=== PATIENT | female | born 1975 | race Caucasian/White ===

== ENCOUNTER 2018-10-02 20:48 | Inpatient (IN) | payer MEDICARE, MEDICAID ==
[~2018-10-02] VITALS: Ht 154.9 cm; Wt 77.1 kg
--- NOTE | ~2018-10-02 | EKG ---
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
--- NOTE | ~2018-10-02 | EKG ---
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
--- NOTE | ~2018-10-02 | CON ---
[place], [place] REPORT OF CONSULTATION NAME: TRAE MUÑIZ UNIT #: [id number] ROOM: 401 DOCTOR: JONN FINNEGAN,FANTASMA BIRTHDATE: [birth year] DOS: 10/03/2018 REASON FOR CONSULTATION: Tachycardia. HISTORY OF PRESENT ILLNESS: The patient is a 42-year-old patient was admitted with cough, shortness of breath and fever. She noted to have tachycardia and Cardiology was consulted. In the Emergency Room, heart rates almost 180. She received adenosine and Cardizem and IV Lopressor. She denies any palpitations. The patient is mostly noncommunicative due to her laryngeal problems. Her is at bedside. She denies any chest pain, PND or orthopnea. REVIEW OF SYSTEMS: Review of the 10 systems are limited due to the patient's mostly unable to communicate properly due to her history of laryngeal problems. PAST MEDICAL HISTORY: 1. History of foot drops. 2. Renal stones. 3. Migraine headaches. 4. Anxiety and depression. PAST SURGICAL HISTORY: Nil contributory. SOCIAL HISTORY: The patient is a former smoker, quit in 2016. Does not drink, does not use illicit drugs. FAMILY HISTORY: Nil contributory. ALLERGIES: Reviewed. MEDICATIONS: Reviewed. PHYSICAL EXAMINATION: VITAL SIGNS: Blood pressure 150/66, pulse 120, respiratory rate 22, weight 77.1 kg, BMI 30. GENERAL: Alert, comfortable, in no acute distress. NECK: Supple, no distended neck veins, no carotid bruit. CHEST: Symmetrical, nontender. LUNGS: Few scattered rhonchi. HEART: Regular rhythm, no S3, no palpable thrills. ABDOMEN: Nontender. Bowel sounds normal. EXTREMITIES: Showed trace edema. Distal pulses are fair. SKIN: Warm and dry. RECTAL: Deferred. GENITOURINARY: Deferred. NEUROLOGIC: Limited. REVIEW OF THE DIAGNOSTIC TESTS: EKG showed paroxysmal supraventricular tachycardia. Cardiac troponins are slightly elevated at 0.05, 0.056, 0.052. TSH is normal. White cell count is 17.1 thousand, hemoglobin 13.6. Chem-7 is unremarkable. [place], [place] REPORT OF CONSULTATION NAME: TRAE MUÑIZ UNIT #: [id number] ROOM: 401 DOCTOR: JONN FINNEGAN,FANTASMA BIRTHDATE: [birth year] IMPRESSION: 1. Paroxysmal supraventricular tachycardia. 2. Borderline elevation troponin due to tachycardia. 3. Upper respiratory illness. 4. Hypertension. 5. Bilateral foot drop. 6. Non-morbid obesity. 7. Anxiety and depression. RECOMMENDATIONS: 1. Start metoprolol 25 mg 3 times a day and watch her heart rate and blood pressures. 2. Check 2D echo for LV function and valvular function. 3. Further recommendation based on her hospital course above. Above recommendations discussed with the patient and her who is at bedside and all their questions were answered. FANTASMA LUNSFORD MD CM:CONSTR:REPORT OF CONSULTATION 1923 10/04/18 0127 interface
--- NOTE | ~2018-10-02 | EKG ---
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
[~2018-10-02 20:48] MED LIST: AMOXICILLIN500 M2 PO; AMOXIL500 MG PO; ATIVAN0.5 MG PO; AUGMENTIN 875 M1 TAB PO; BENADRYL ALLERG25 M2 PO; BENADRYL25 M2 PO; CAYENNE PO; CELERY SEED OI500 ML PO; CIPRO250 MG PO; EAR WAX DROPS 115 ML OT; FEOSOL300 MG PO; FISH OIL500 M1 PO; FLEXERIL5 MG PO; FLOMAX0.4 MG PO; LEXAPRO5 MG PO; LICORICE ROOT PO; MONOPRIL20 MG PO; MOTRIN400 MG PO; MOTRIN600 MG PO; MULTIPLE VITAMI1 CAP PO; Medrol Dosepak4 MG PO; PRILOSEC20 MG PO; TRAMADOL HCL50 MG PO; ULTRAM50 MG PO; VOLTAREN50 M1 PO; ZITHROMAX Z PA250 MG PO; ZOFRAN ODT4 MG SL; [UNRECOGNIZED DRUG - OTHER] PO
[2018-10-02 21:03] VITALS: BP 143/97
--- NOTE | 2018-10-02 21:24 | NUR ---
PATIENT REFUSING BIPAP PER .
[2018-10-02 21:25] LABS: BASO # 0.1 10*3/uL (0.0-0.1); BASO % 0.3 % (0.0-1.0); EOS % 0.1 % (1.0-4.0); HEMATOCRIT 42.3 % (37.0-47.0); HEMOGLOBIN 13.6 g/dl (12.0-16.0); LYMPH # 0.9 10*3/uL (1.3-4.4); LYMPH % 5.2 % (27.0-41.0); MEAN CELL VOLUME 80.4 fl (81.0-99.0); MEAN CORPUSCULAR HGB 25.9 pg (27.0-31.0); MEAN CORPUSCULAR HGB CONC 32.2 g/dl (33.0-37.0); MEAN PLATELET VOLUME 9.6 fl (9.6-12.3); MONO # 1.2 10*3/uL (0.1-1.0); MONO % 7.2 % (3.0-9.0); NEUT # 14.8 10*3/uL (2.3-7.9); NEUT % 86.8 % (47.0-73.0); PLATELET COUNT AUTOMATED 270 10*3/uL (130-400); RED BLOOD COUNT 5.26 10*6/uL (4.10-5.10); RED CELL DISTRI WIDTH 13.8 % (0-14.5); WHITE BLOOD COUNT 17.1 10*3/uL (4.8-10.8)
--- NOTE | 2018-10-02 21:36 | NUR ---
CARDIOVERSION PADS PLACED ON PT I EXPLAINED TO PT THE USE AND POSSIBLE NEED FOR SYNC CARDIOVERSION PT STATES SHE DOES NOT WANT TO BE SHOCKED PT STATES SHE REFUSES
[2018-10-02 21:38] LABS: ACT PARTIAL THROMBO TIME 27.9 SECONDS (20.0-32.1)
[2018-10-02 21:39] VITALS: BP 74/45
--- NOTE | 2018-10-02 21:43 | NUR ---
CRITICAL LACTIC 2.9, NOTIFIED.
[2018-10-02 21:44] LABS: ALBUMIN 4.1 gm/dl (3.1-4.5); ALKALINE PHOSPHATASE 73 U/L (45-117); BUN 7 mg/dl (7-24); CHLORIDE 107 mmol/L (98-107); CREATININE 0.65 mg/dL (0.55-1.02); POTASSIUM 3.7 mmol/L (3.5-5.1); SGOT/AST 11 IU/L (3-35); SGPT/ALT 14 U/L (12-78); SODIUM 141 mmol/L (136-145); TOTAL PROTEIN 8.2 gm/dL (6.4-8.2)
[2018-10-02 21:45] LABS: TROPONIN I < 0.015 ng/ml (<0.045)
--- NOTE | 2018-10-02 21:52 | NUR ---
PT HEART RATE MAINTAINS RATE OF 165 DR HEARD NOTIFIED VO TO D/C CARDIZEM IP GIVEN ORDERS TO GIVE PT IV FLUID CHALLENGE
--- NOTE | 2018-10-02 22:06 | NUR ---
MINIMAL CHANGE WITH 6 ADENACARD PT GIVEN 12 ADENACARD RATE DROPPED BRIEFLY INTO 80'S / MIN AND QUICKLY RETURNED TO MID 160' MIN
[2018-10-02 22:17] VITALS: BP 155/100
[2018-10-02 22:25] VITALS: BP 157/110
[2018-10-02 22:34] VITALS: BP 163/107
[2018-10-02 22:41] VITALS: BP 152/104
[2018-10-02 23:57] LABS: BILIRUBIN NEGATIVE (NEGATIVE); BLOOD 3+ (NEGATIVE); COLOR YELLOW (YELLOW); GLUCOSE NEGATIVE (NEGATIVE); KETONE 3+ (NEGATIVE); LEUKO ESTERASE NEGATIVE (NEGATIVE); NITRITE NEGATIVE (NEGATIVE); UROBILINOGEN 0.2 E.U./dl (0.2-1.0)
[2018-10-03] VITALS (9 sets, daily range): BP systolic 139–160; BP diastolic 66–102
[2018-10-03 00:07] LABS: BACTERIA TRACE; CLARITY CLOUDY (CLEAR); EPITHELIAL CELLS TNTC; RBC 16-20 rbc/hpf (0-2)
--- NOTE | 2018-10-03 00:27 | NUR ---
LAB CALLED TROPONIN 0.056 DR HEARD NOTIFIED
--- NOTE | 2018-10-03 03:03 | NUR ---
LAB CALLED TROPONIN 0.052 DR HEARD NOTIFIED
--- NOTE | 2018-10-03 05:50 | NUR ---
MESSAGE LEFT WITH YIFAN HOFF FOR CONSULT.
--- NOTE | 2018-10-03 07:20 | NUR ---
PT REPORT RECEIVED. PT AWAKE AND ALERT. VITALS STABLE AND TACHYCARDIA REMAINS ALTHOUGH IMPROVED. NO CARDIAC DRIP IS RUNNING ANY LONGER SINCE MY ARRIVAL.
--- NOTE | 2018-10-03 08:10 | NUR ---
PT REQUESTS MOTRIN, NOT TYLEBNOL, FOR CHRONIC HEADACHE. DR OCHOA WAS ASKED TO PROVIDE ORDER. INSTEAD HE ORDERS A URINE . PT STATES SHE HAS ALREADY URINATED AND CANNOT NOW. NO MOTRIN ORDER PROVIDED YET.
--- NOTE | 2018-10-03 08:20 | NUR ---
TACHYCARDIA PERSISTS. NEW ORDER FOR CTA CHEST. PT DENIES SOB.
--- NOTE | 2018-10-03 08:24 | NUR ---
PT WAS FEBRILE ON ARRIVAL YESTERDAY. NO LONGER FEBRILE.
[2018-10-03] MEDS ORDERED: CALM (08:43)
[2018-10-03] MEDS ORDERED: BEET ROOT (08:43)
[2018-10-03] MEDS ORDERED: VITAMIN C1000 M5 PO (08:44)
[2018-10-03] MEDS ORDERED: TUMERIC (08:44)
[2018-10-03] MEDS ORDERED: [UNRECOGNIZED DRUG - OTHER] (08:46)
[2018-10-03] MEDS ORDERED: QUERCETIN DIHYDR1 GM PO (08:46)
[2018-10-03] MEDS ORDERED: CBD (08:47)
--- NOTE | 2018-10-03 09:52 | NUR ---
A 42, admitted to , under the services of TESSY Soliman DO with a diagnosis of TACHYARRHYTHMIA, BRONCHITIS. Chief complaint is SHORTNESS OF BREATH, COUGH, FEVER. Patient arrived via stretcher from ER. Monitor applied. Initial assessment completed. Vital signs taken and recorded. TESSY SOLIMAN DO notified of admission to the unit. Orders received. See assessment for past medical history, medications and allergies. Patient and/or family oriented to unit. [address] visitation policy reviewed. Clothing/patient valuable form completed. HUONG FAITH
--- NOTE | 2018-10-03 10:55 | NUR ---
PT REQUESTED AND WAS MEDICATED WITH MOTRIN GIVEN FOR PT C/O HEADACHE. CALL LIGHT AND AT BEDSIDE. WILL MONITOR
--- NOTE | 2018-10-03 15:19 | NUR ---
24 HR chart check completed.
--- NOTE | 2018-10-03 19:48 | NUR ---
24 HOUR CHART CHECK COMPLETE.
--- NOTE | 2018-10-03 22:56 | NUR ---
SPOKE TO DR. BOWSER REGARDING PTS REQUEST FOR IBUPROFEN INSTEAD OF TYLENOL FOR NECK PAIN SHE IS EXPERIENCING FROM HER PERSISTENT COUGH. PT STATES "TYLENOL MAKES MY STOMACH UPSET". AWAITING NEW ORDERS, NO NEW ORDERS AT THIS TIME.
--- NOTE | 2018-10-03 23:29 | NUR ---
ADMINISTERED PRN MOTRIN PRESCRIBED FOR 3/10 NECK PAIN RELATED TO PERSISTENT COUGH. WILL CONTINUE TO MONITOR THE PT AND REASSESS IN AN HOUR. CALL LIGHT IN REACH. NO OTHER COMPLAINTS AT THIS TIME.
[2018-10-04] VITALS: BP 140/110
--- NOTE | 2018-10-04 00:30 | NUR ---
PT SAYS THE MOTRIN WAS EFFECTIVE. WILL CONTINUE TO MONITOR.
[2018-10-04 06:12] VITALS: BP 130/64
--- NOTE | 2018-10-04 06:23 | NUR ---
WENT IN TO ADMINISTER PTS MORNING DOSE OF LOPRESSOR AND PT REQUESTED WAITING A LITTLE LATER IN THE MORNING TO TAKE IT BECAUSE SHE "HAS A HARD TIME TAKING PILLS IN THE MORNING". PTS HR IS 88 AND BP IS 130/64. I WILL NOTIFY THE ONCOMING NURSE OF THE PTS REQUEST AND CONTINUE TO MONITOR THE PT.
[2018-10-04 06:25] LABS: BASO % 0.2 % (0.0-1.0); LYMPH # 0.7 10*3/uL (1.3-4.4); LYMPH % 7.3 % (27.0-41.0); MEAN CORPUSCULAR HGB 25.8 pg (27.0-31.0); MEAN CORPUSCULAR HGB CONC 31.1 g/dl (33.0-37.0); MEAN PLATELET VOLUME 10.1 fl (9.6-12.3); MONO # 0.6 10*3/uL (0.1-1.0); MONO % 6.1 % (3.0-9.0); NEUT # 7.8 10*3/uL (2.3-7.9); PLATELET COUNT AUTOMATED 217 10*3/uL (130-400); RED BLOOD COUNT 4.23 10*6/uL (4.10-5.10); RED CELL DISTRI WIDTH 14.3 % (0-14.5); WHITE BLOOD COUNT 9.1 10*3/uL (4.8-10.8)
[2018-10-04 06:28] LABS: BUN 8 mg/dl (7-24); CHLORIDE 114 mmol/L (98-107); CHOLESTEROL 127 mg/dL (<200); CREATININE 0.41 mg/dL (0.55-1.02); PHOSPHOROUS 2.7 mg/dL (2.5-4.9); POTASSIUM 3.9 mmol/L (3.5-5.1); SODIUM 144 mmol/L (136-145)
[2018-10-04 06:33] LABS: FREE T4 1.46 ng/dl (0.76-1.46); HDL CHOLESTEROL 62 mg/dl (40-60); LDL CHOLESTEROL 56 mg/dL (9-159); TRIGLYCERIDES 44 mg/dl (<150); VLDL CHOLESTEROL 9 mg/dL (6-40)
[2018-10-04 07:00] LABS: HEMATOCRIT 35.1 % (37.0-47.0); HEMOGLOBIN 10.9 g/dl (12.0-16.0)
--- NOTE | 2018-10-04 07:00 | NUR ---
ARRIVED ON FLOOR, INTRODUCED TO PATIENT, BEDSIDE REPORT RECIEVED, WHITE BOARD UPDATED.O CONCERNS VOICED AT THIS TIME.
--- NOTE | 2018-10-04 07:54 | NUR ---
Shift chart check completed.
[2018-10-04 08:00] VITALS: BP 138/68
--- NOTE | 2018-10-04 10:00 | NUR ---
PATIENT C/O HEAD AND NECK ACHE, MEDICATED WITH MOTRIN
--- NOTE | 2018-10-04 11:00 | NUR ---
PATIENT REPORTS GOOD EFFECT FROM MOTRIN GIVEN X 1 HOUR AGO
[2018-10-04 11:30] VITALS: BP 134/66
--- NOTE | 2018-10-04 15:50 | NUR ---
IV RIGHT ANTICUBE LEAKING FLUIDS, STARTED NEW IV LEFT HAND, PATIENT TOLERATED WELL,IV NS RUNNING AT 100CC HOUR
[2018-10-04 16:00] VITALS: BP 140/90
--- NOTE | 2018-10-04 19:55 | NUR ---
24 HOUR CHART CHECK COMPLETE.
[2018-10-04 20:00] VITALS: BP 140/100; BP 153/92
--- NOTE | 2018-10-04 23:30 | NUR ---
PT ANXIOUS, UPSET AND CRYING WORRIED ABOUT HER HEALTH AND CONDITION. I SAT WITH THE PT AND HER AND ASKED ABOUT HER CONCERNS. SHE IS VERY WORRIED ABOUT HER HEART RATE. I EXPLAINED THAT SHE HAS BEEN IN NSR WITH A HR IN THE 80-90'S FOR ME. I WENT OVER LAB RESULTS, TEST RESULTS, AND PLAN OF CARE FOR THE PT. I ANSWERED ANY QUESTIONS SHE HAD. SHE STATED SHE FELT BETTER AFTER WE TALKED. SHE APPEARS MORE RELAXED. I REMINDED HER OF THE USE OF HER CALL LIGHT TO REACH ME WITH ANY OTHER CONCERNS THAT SHE MAY HAVE.
[2018-10-05] VITALS: BP 142/99
[2018-10-05 06:15] LABS: BASO % 0.1 % (0.0-1.0); HEMATOCRIT 35.9 % (37.0-47.0); HEMOGLOBIN 11.4 g/dl (12.0-16.0); LYMPH # 0.8 10*3/uL (1.3-4.4); LYMPH % 8.3 % (27.0-41.0); MEAN CELL VOLUME 81.4 fl (81.0-99.0); MEAN CORPUSCULAR HGB 25.9 pg (27.0-31.0); MEAN CORPUSCULAR HGB CONC 31.8 g/dl (33.0-37.0); MEAN PLATELET VOLUME 10.1 fl (9.6-12.3); MONO # 0.8 10*3/uL (0.1-1.0); MONO % 7.9 % (3.0-9.0); NEUT # 8.1 10*3/uL (2.3-7.9); NEUT % 83.1 % (47.0-73.0); PLATELET COUNT AUTOMATED 277 10*3/uL (130-400); RED BLOOD COUNT 4.41 10*6/uL (4.10-5.10); RED CELL DISTRI WIDTH 14.1 % (0-14.5); WHITE BLOOD COUNT 9.8 10*3/uL (4.8-10.8)
[2018-10-05 06:33] LABS: BUN 12 mg/dl (7-24); CHLORIDE 114 mmol/L (98-107); CREATININE 0.42 mg/dL (0.55-1.02); POTASSIUM 3.7 mmol/L (3.5-5.1); SODIUM 146 mmol/L (136-145)
[2018-10-05 08:00] VITALS: BP 148/88
[2018-10-05 12:00] VITALS: BP 148/90
[2018-10-05 16:00] VITALS: BP 140/64
--- NOTE | 2018-10-05 19:39 | NUR ---
24 HOUR CHART CHECK COMPLETE.
[2018-10-05 20:00] VITALS: BP 142/110; BP 146/62
--- NOTE | 2018-10-05 20:00 | NUR ---
LABS RESULTS REVIEWED WITH PT PER REQUEST. PT STATES THAT "BEING INFORMED HELPS HER CONTROL HER ANXIETY". WILL CONTINUE TO UPDATE HER WITH ANY CHANGES TO HER PLAN OF CARE.
[2018-10-06] VITALS: BP 137/91
[2018-10-06 08:05] VITALS: BP 142/100
--- NOTE | 2018-10-06 09:00 | NUR ---
Punch Card Operator in to talk to patient. Patient states lives at home with . There are no steps in the home. Physician: none at present [facility]acy[facility] Patient's level of ADLs: MINIMAL ASSIST Patient has working utilities: all working DME: electric wheelchair Follow-up physician's appointment after d/c: will be made by hospitalist nurse director upon discharge Does patient want to access PORTAL?: no Discharge plan discussed with patient, patient lives at home with , she uses an electric wheelchair for ambulation, patient states she will be going home when able and denies any home needs, discussed with patient no having a doctor to follow up with, patient stated she was given a list of doctors and would like to follow up with the resident clinic, will notify hospitalist cherie director, patient denies any other needs at this time. KERVIN IBANEZ
[2018-10-06] MEDS ORDERED: LOPRESSOR100 M1 PO (11:55)
[2018-10-06] MEDS ORDERED: PROAIR HFA8.5 GM INH (11:55)
[2018-10-06] MEDS ORDERED: CEFUROXIME AXE500 MG PO (11:55)
[2018-10-06] MEDS ORDERED: PREDNISONE10 MG PO (11:55)
--- NOTE | 2018-10-06 13:05 | NUR ---
Discharge instructions reviewed with patient/family. Patient receptive and verbalizes understanding. Follow-up care arranged. Written instructions given to patient/family. TERRI WYATT
--- NOTE | 2018-10-06 13:21 | NUR ---
PATIENT DISCHARGED TO FRONT LOBBY BY WHEELCHAIR WITH , FOR TRANSPORT HOME BY PRIVATE VEHICLE.
== END 2018-10-06 13:21 | disposition home or self-care (01) | DRG 871 ==
LOC: ED 20:48 → 4E 10-03 01:47 → EDHOLD 10-03 01:47 → 4E 10-03 09:17
PROVIDERS: Emergency Medicine; Internal Medicine; Student in an Organized Health Care Education/Training Program; ADMIT Internal Medicine
DX: A41.9 Sepsis, unspecified organism (principal); J18.9 Pneumonia, unspecified organism; J96.01 Acute respiratory failure with hypoxia; N39.0 Urinary tract infection, site not specified; I47.1 Supraventricular tachycardia; R65.20 Severe sepsis without septic shock; F32.9 Major depressive disorder, single episode, unspecified; M21.372 Foot drop, left foot; M21.371 Foot drop, right foot; I10 Essential (primary) hypertension; R74.8 Abnormal levels of other serum enzymes; R80.9 Proteinuria, unspecified; R31.9 Hematuria, unspecified; B96.89 Other specified bacterial agents as the cause of diseases classified elsewhere; R82.4 Acetonuria; J40 Bronchitis, not specified as acute or chronic; G43.909 Migraine, unspecified, not intractable, without status migrainosus; D75.89 Other specified diseases of blood and blood-forming organs; R79.82 Elevated C-reactive protein (CRP); F41.9 Anxiety disorder, unspecified; E66.8 Other obesity; Z68.32 Body mass index [BMI] 32.0-32.9, adult; Z88.8 Allergy status to other drugs, medicaments and biological substances; Z88.1 Allergy status to other antibiotic agents; Z88.6 Allergy status to analgesic agent; Z87.442 Personal history of urinary calculi; Z87.891 Personal history of nicotine dependence; Z83.3 Family history of diabetes mellitus; Z82.49 Family history of ischemic heart disease and other diseases of the circulatory system; Z79.899 Other long term (current) drug therapy

== ENCOUNTER → 2018-10-28 | Outpatient (CLI) | payer MEDICARE ==
[~2018-10-28] MED LIST changes: +BEET ROOT; +CALM; +CBD; +CEFUROXIME AXE500 MG PO; +LOPRESSOR100 M1 PO; +PREDNISONE10 MG PO; +PROAIR HFA8.5 GM INH; +QUERCETIN DIHYDR1 GM PO; +TUMERIC; +VITAMIN C1000 M5 PO; +[UNRECOGNIZED DRUG - OTHER]
== END | disposition home or self-care (01) ==
LOC: RESCLI 02:08
DX: Z09 Encounter for follow-up examination after completed treatment for conditions other than malignant neoplasm (principal); G43.909 Migraine, unspecified, not intractable, without status migrainosus; I10 Essential (primary) hypertension; I47.1 Supraventricular tachycardia; E55.9 Vitamin D deficiency, unspecified; Z79.899 Other long term (current) drug therapy

== ENCOUNTER → 2018-12-02 | Outpatient (CLI) | payer MEDICARE | END | disposition home or self-care (01) | LOC: RESCLI 00:59 | DX: E55.9 Vitamin D deficiency, unspecified (principal); I47.1 Supraventricular tachycardia; I10 Essential (primary) hypertension; R50.9 Fever, unspecified; Z79.899 Other long term (current) drug therapy; Z88.8 Allergy status to other drugs, medicaments and biological substances ==

== ENCOUNTER → 2019-04-21 | Outpatient (CLI) | payer MEDICARE | END | disposition home or self-care (01) | LOC: RESCLI 02:13 | DX: I47.1 Supraventricular tachycardia (principal); J45.20 Mild intermittent asthma, uncomplicated; E55.9 Vitamin D deficiency, unspecified; Z87.891 Personal history of nicotine dependence; Z88.8 Allergy status to other drugs, medicaments and biological substances ==

== ENCOUNTER → 2019-10-30 | Outpatient (CLI) | payer MEDICARE | END | disposition home or self-care (01) | LOC: RESCLI 01:19 | DX: J45.20 Mild intermittent asthma, uncomplicated (principal); E55.9 Vitamin D deficiency, unspecified; I47.1 Supraventricular tachycardia; M21.371 Foot drop, right foot; M21.372 Foot drop, left foot ==

== ENCOUNTER → 2019-11-30 | Outpatient (CLI) | payer MEDICARE | END | disposition home or self-care (01) | LOC: LAB 14:57 | DX: E55.9 Vitamin D deficiency, unspecified (principal) ==

== ENCOUNTER → 2020-04-20 | Outpatient (CLI) | payer MEDICARE | END | disposition home or self-care (01) | LOC: RESCLI 00:09 | PROVIDERS: ATTEND Internal Medicine Nephrology | DX: J45.20 Mild intermittent asthma, uncomplicated (principal); E55.9 Vitamin D deficiency, unspecified; I47.1 Supraventricular tachycardia; Z79.899 Other long term (current) drug therapy; Z88.8 Allergy status to other drugs, medicaments and biological substances ==

== ENCOUNTER → 2020-08-04 | Outpatient (CLI) | payer MEDICARE | END | disposition home or self-care (01) | LOC: RESCLI 00:26 | PROVIDERS: ATTEND Internal Medicine | DX: I47.1 Supraventricular tachycardia (principal); E55.9 Vitamin D deficiency, unspecified; J45.20 Mild intermittent asthma, uncomplicated; F41.9 Anxiety disorder, unspecified; Z79.899 Other long term (current) drug therapy; Z98.890 Other specified postprocedural states; Z88.8 Allergy status to other drugs, medicaments and biological substances ==

== ENCOUNTER → 2020-11-07 | Outpatient (CLI) | payer OTHER, MEDICARE ==
[2020-11-07 15:54] LABS: BASO # 0.1 10*3/uL (0.0-0.1); BASO % 0.8 % (0.0-1.0); EOS # 0.4 10*3/uL (0.0-0.4); EOS % 3.9 % (1.0-4.0); HEMATOCRIT 38.3 % (37.0-47.0); LYMPH % 21.3 % (27.0-41.0); MEAN CELL VOLUME 81.8 fl (81.0-99.0); MEAN CORPUSCULAR HGB 26.7 pg (27.0-31.0); MEAN CORPUSCULAR HGB CONC 32.6 g/dl (33.0-37.0); MEAN PLATELET VOLUME 9.5 fl (9.6-12.3); MONO % 10.6 % (3.0-9.0); NEUT # 5.8 10*3/uL (2.3-7.9); NEUT % 63.1 % (47.0-73.0); PLATELET COUNT AUTOMATED 301 10*3/uL (130-400); RED BLOOD COUNT 4.68 10*6/uL (4.10-5.10); RED CELL DISTRI WIDTH 13.8 % (0-14.5); WHITE BLOOD COUNT 9.2 10*3/uL (4.8-10.8)
[2020-11-07 16:26] LABS: ALBUMIN 3.6 gm/dl (3.1-4.5); ALKALINE PHOSPHATASE 55 U/L (45-117); BUN 11 mg/dl (7-24); CHLORIDE 108 mmol/L (98-107); CHOLESTEROL 176 mg/dL (<200); CREATININE 0.57 mg/dL (0.55-1.02); LDL CHOLESTEROL 93 mg/dL (9-159); POTASSIUM 3.6 mmol/L (3.5-5.1); SGOT/AST 14 IU/L (3-35); SGPT/ALT 20 U/L (12-78); SODIUM 141 mmol/L (136-145); TOTAL PROTEIN 7.7 gm/dL (6.4-8.2); TRIGLYCERIDES 121 mg/dl (<150)
[2020-11-07 16:35] LABS: VITAMIN D, 25-HYDROXY 55.6 ng/mL (30-100)
== END | disposition home or self-care (01) ==
LOC: LAB 15:23
PROVIDERS: Student in an Organized Health Care Education/Training Program; ATTEND Internal Medicine Nephrology
DX: E55.9 Vitamin D deficiency, unspecified (principal); Z79.899 Other long term (current) drug therapy

== ENCOUNTER → 2020-11-11 | Outpatient (CLI) | payer MEDICARE | END | disposition home or self-care (01) | LOC: RESCLI 00:49 | PROVIDERS: ATTEND Internal Medicine | DX: I47.1 Supraventricular tachycardia (principal); E55.9 Vitamin D deficiency, unspecified; I10 Essential (primary) hypertension; J45.20 Mild intermittent asthma, uncomplicated; G43.909 Migraine, unspecified, not intractable, without status migrainosus; Z79.899 Other long term (current) drug therapy; Z87.891 Personal history of nicotine dependence ==

== ENCOUNTER 2021-02-02 12:41 | Emergency (ER) | payer MEDICARE ==
[~2021-02-02] VITALS: Wt 74.8 kg
[2021-02-02] MEDS ORDERED: PREDNISONE20 M1 PO ×3 (15:39→16:00)
[2021-02-02] MEDS ORDERED: PROVENTIL HFA6.7 GM INH ×3 (15:39→16:00)
== END 2021-02-02 15:40 | disposition home or self-care (01) ==
LOC: ED 12:41
DX: J40 Bronchitis, not specified as acute or chronic (principal); Z20.822 Contact with and (suspected) exposure to COVID-19; Z91.030 Bee allergy status; Z88.8 Allergy status to other drugs, medicaments and biological substances; Z88.1 Allergy status to other antibiotic agents; Z79.899 Other long term (current) drug therapy; Z87.891 Personal history of nicotine dependence

== ENCOUNTER → 2021-05-15 | Outpatient (CLI) | payer MEDICARE ==
[~2021-05-15] MED LIST changes: +PREDNISONE20 M1 PO; +PROVENTIL HFA6.7 GM INH
== END | disposition home or self-care (01) ==
LOC: RESCLI 09:28
PROVIDERS: ATTEND Internal Medicine Nephrology
DX: I47.1 Supraventricular tachycardia (principal); E55.9 Vitamin D deficiency, unspecified; J45.20 Mild intermittent asthma, uncomplicated; Z79.899 Other long term (current) drug therapy

== ENCOUNTER → 2021-11-06 | Outpatient (CLI) | payer MEDICARE | END | disposition home or self-care (01) | LOC: RESCLI 05:35 | PROVIDERS: ATTEND Internal Medicine | DX: I47.1 Supraventricular tachycardia (principal); E55.9 Vitamin D deficiency, unspecified; F41.9 Anxiety disorder, unspecified; Z87.891 Personal history of nicotine dependence; Z79.899 Other long term (current) drug therapy; Z88.8 Allergy status to other drugs, medicaments and biological substances ==

== ENCOUNTER → 2022-05-28 | Outpatient (CLI) | payer MEDICARE | END | disposition home or self-care (01) | LOC: RESCLI 04:33 | PROVIDERS: ATTEND Internal Medicine | DX: M21.372 Foot drop, left foot (principal); M21.371 Foot drop, right foot; I47.1 Supraventricular tachycardia; E55.9 Vitamin D deficiency, unspecified; I10 Essential (primary) hypertension; J45.20 Mild intermittent asthma, uncomplicated; F41.9 Anxiety disorder, unspecified; F32.A Depression, unspecified; F43.10 Post-traumatic stress disorder, unspecified; N20.0 Calculus of kidney; Z78.9 Other specified health status; Z82.49 Family history of ischemic heart disease and other diseases of the circulatory system; Z83.3 Family history of diabetes mellitus; Z79.899 Other long term (current) drug therapy; Z88.8 Allergy status to other drugs, medicaments and biological substances; Z91.018 Allergy to other foods; Z91.030 Bee allergy status ==

== ENCOUNTER → 2022-09-24 | Outpatient (CLI) | payer MEDICARE ==
[~2022-09-24] MED LIST changes: +AMLODIPINE BESYL5 MG PO; +LOPERAMIDE HCL2 MG PO; +NASAL RELIEF 1215 ML NAS; +OMNICEF300 MG PO; +VIBRAMYCIN100 MG PO; +VITAMIN B6 PO
== END | disposition home or self-care (01) ==
LOC: RESCLI 02:28
PROVIDERS: ATTEND Internal Medicine
DX: I10 Essential (primary) hypertension (principal); J45.20 Mild intermittent asthma, uncomplicated; R05.9 Cough, unspecified; Z79.899 Other long term (current) drug therapy

== ENCOUNTER 2022-09-27 13:33 | Emergency (ER) | payer OTHER ==
[~2022-09-27] VITALS: Wt 90.7 kg
[~2022-09-27 13:33] MED LIST changes: -AMLODIPINE BESYL5 MG PO; -LOPERAMIDE HCL2 MG PO; -NASAL RELIEF 1215 ML NAS; -OMNICEF300 MG PO; -VITAMIN B6 PO
[2022-09-27 14:33] LABS: BASO % 0.1 % (0.0-1.0); HEMATOCRIT 41.2 % (37.0-47.0); LYMPH # 0.9 10*3/uL (1.3-4.4); LYMPH % 11.3 % (27.0-41.0); MEAN CELL VOLUME 77.9 fl (81.0-99.0); MEAN CORPUSCULAR HGB 24.4 pg (27.0-31.0); MEAN CORPUSCULAR HGB CONC 31.3 g/dl (33.0-37.0); MEAN PLATELET VOLUME 9.2 fl (9.6-12.3); MONO # 0.3 10*3/uL (0.1-1.0); MONO % 4.5 % (3.0-9.0); NEUT # 6.3 10*3/uL (2.3-7.9); NEUT % 83.6 % (47.0-73.0); PLATELET COUNT AUTOMATED 352 10*3/uL (130-400); RED BLOOD COUNT 5.29 10*6/uL (4.10-5.10); RED CELL DISTRI WIDTH 14.6 % (0-14.5); WHITE BLOOD COUNT 7.5 10*3/uL (4.8-10.8)
[2022-09-27 14:45] LABS: ACT PARTIAL THROMBO TIME 27.7 SECONDS (20.0-32.1)
[2022-09-27 14:55] LABS: ALKALINE PHOSPHATASE 59 U/L (46-116); BUN 8 mg/dl (9-23); CHLORIDE 105 mmol/L (98-107); POTASSIUM 3.9 mmol/L (3.4-5.1); SGPT/ALT 14 U/L (10-49); TOTAL PROTEIN 7.3 gm/dL (6.0-8.0)
== END 2022-09-27 15:55 | disposition left against medical advice (07) ==
LOC: ED 13:33
PROVIDERS: Internal Medicine
DX: R78.81 Bacteremia (principal); Z91.030 Bee allergy status; Z88.1 Allergy status to other antibiotic agents; Z88.6 Allergy status to analgesic agent; Z88.8 Allergy status to other drugs, medicaments and biological substances; Z87.891 Personal history of nicotine dependence

== ENCOUNTER 2022-09-28 17:02 | Inpatient (IN) | payer OTHER ==
[~2022-09-28] VITALS: Ht 152.4 cm; Wt 98.4 kg
[2022-09-28 18:23] VITALS: BP 156/111
[2022-09-28 18:52] VITALS: BP 149/98
[2022-09-28 18:58] LABS: BASO % 0.2 % (0.0-1.0); EOS % 0.1 % (1.0-4.0); HEMATOCRIT 41.8 % (37.0-47.0); LYMPH # 2.4 10*3/uL (1.3-4.4); LYMPH % 18.9 % (27.0-41.0); MEAN CELL VOLUME 78.7 fl (81.0-99.0); MEAN CORPUSCULAR HGB CONC 31.8 g/dl (33.0-37.0); MEAN PLATELET VOLUME 9.3 fl (9.6-12.3); MONO # 1.3 10*3/uL (0.1-1.0); MONO % 10.6 % (3.0-9.0); NEUT # 8.9 10*3/uL (2.3-7.9); NEUT % 69.8 % (47.0-73.0); PLATELET COUNT AUTOMATED 397 10*3/uL (130-400); RED BLOOD COUNT 5.31 10*6/uL (4.10-5.10); RED CELL DISTRI WIDTH 14.7 % (0-14.5); WHITE BLOOD COUNT 12.7 10*3/uL (4.8-10.8)
[2022-09-28 19:09] LABS: ACT PARTIAL THROMBO TIME 26.3 SECONDS (20.0-32.1)
[2022-09-28 19:36] LABS: BILIRUBIN Negative (Negative); BLOOD 3+ (Negative); CLARITY Turbid (Clear); COLOR Yellow (Yellow); GLUCOSE Negative (Negative); KETONE Trace (Negative); LEUKO ESTERASE 2+ (Negative); NITRITE Negative (Negative); SPECIFIC GRAVITY 1.025 (1.001-1.030)
[2022-09-28 19:49] LABS: BACTERIA 3+; RBC 21-30 rbc/hpf (0-2)
[2022-09-28 20:14] LABS: ALKALINE PHOSPHATASE 55 U/L (46-116); BUN 12 mg/dl (9-23); CHLORIDE 105 mmol/L (98-107); POTASSIUM 3.7 mmol/L (3.4-5.1); SGPT/ALT 17 U/L (10-49); TOTAL PROTEIN 7.4 gm/dL (6.0-8.0)
[2022-09-29 03:50] VITALS: BP 160/93
[2022-09-29 06:07] LABS: BASO % 0.1 % (0.0-1.0); HEMATOCRIT 38.3 % (37.0-47.0); LYMPH # 1.1 10*3/uL (1.3-4.4); LYMPH % 10.9 % (27.0-41.0); MEAN CELL VOLUME 79.3 fl (81.0-99.0); MEAN CORPUSCULAR HGB 25.1 pg (27.0-31.0); MEAN CORPUSCULAR HGB CONC 31.6 g/dl (33.0-37.0); MEAN PLATELET VOLUME 9.8 fl (9.6-12.3); MONO # 0.3 10*3/uL (0.1-1.0); MONO % 2.7 % (3.0-9.0); NEUT # 8.8 10*3/uL (2.3-7.9); NEUT % 85.9 % (47.0-73.0); PLATELET COUNT AUTOMATED 358 10*3/uL (130-400); RED BLOOD COUNT 4.83 10*6/uL (4.10-5.10); RED CELL DISTRI WIDTH 14.6 % (0-14.5); WHITE BLOOD COUNT 10.2 10*3/uL (4.8-10.8)
[2022-09-29 09:00] LABS: ALKALINE PHOSPHATASE 48 U/L (46-116); BUN 11 mg/dl (9-23); CHLORIDE 105 mmol/L (98-107); CHOLESTEROL 139 mg/dL (<200); FREE T4 1.64 ng/dl (0.89-1.76); LDL CHOLESTEROL 63 mg/dL (9-159); POTASSIUM 3.9 mmol/L (3.4-5.1); SGPT/ALT 15 U/L (10-49); THYROID STIM HORMONE (HS) 0.234 uIU/ml (0.550-4.780); TOTAL PROTEIN 6.8 gm/dL (6.0-8.0); TRIGLYCERIDES 120 mg/dl (<150)
[2022-09-29 09:06] VITALS: BP 144/110
[2022-09-29] MEDS ORDERED: NASAL RELIEF 1215 ML NAS (09:59)
[2022-09-29] MEDS ORDERED: BENADRYL25 M2 PO (11:17)
[2022-09-29 12:00] VITALS: BP 120/65
[2022-09-29] MEDS ORDERED: VITAMIN B6 PO (12:34)
[2022-09-29 16:00] VITALS: BP 156/90
[2022-09-29 20:00] VITALS: BP 150/91
[2022-09-30] VITALS (7 sets, daily range): BP systolic 134–160; BP diastolic 86–109
[2022-09-30] MEDS ORDERED: OMNICEF300 MG PO (14:33)
[2022-10-01] VITALS: BP 117/88
[2022-10-01 06:29] LABS: BASO # 0.1 10*3/uL (0.0-0.1); BASO % 0.5 % (0.0-1.0); EOS # 0.1 10*3/uL (0.0-0.4); EOS % 0.9 % (1.0-4.0); HEMATOCRIT 35.3 % (37.0-47.0); LYMPH # 1.9 10*3/uL (1.3-4.4); LYMPH % 18.4 % (27.0-41.0); MEAN CORPUSCULAR HGB 25.2 pg (27.0-31.0); MEAN CORPUSCULAR HGB CONC 31.4 g/dl (33.0-37.0); MEAN PLATELET VOLUME 9.9 fl (9.6-12.3); MONO % 9.4 % (3.0-9.0); NEUT # 7.3 10*3/uL (2.3-7.9); NEUT % 70.4 % (47.0-73.0); PLATELET COUNT AUTOMATED 280 10*3/uL (130-400); RED BLOOD COUNT 4.41 10*6/uL (4.10-5.10); RED CELL DISTRI WIDTH 14.8 % (0-14.5); WHITE BLOOD COUNT 10.4 10*3/uL (4.8-10.8)
[2022-10-01 06:31] LABS: ALKALINE PHOSPHATASE 43 U/L (46-116); BUN 9 mg/dl (9-23); CHLORIDE 109 mmol/L (98-107); POTASSIUM 3.4 mmol/L (3.4-5.1); SGPT/ALT 16 U/L (10-49); TOTAL PROTEIN 6.2 gm/dL (6.0-8.0)
[2022-10-01 08:00] VITALS: BP 148/98
[2022-10-01] MEDS ORDERED: LOPERAMIDE HCL2 MG PO (10:47)
[2022-10-01] MEDS ORDERED: AMLODIPINE BESYL5 MG PO (10:47)
== END 2022-10-01 13:54 | disposition home or self-care (01) | DRG 871 ==
LOC: ED 17:02 → EDHOLD 20:02 → 5E 20:02
PROVIDERS: Internal Medicine; ADMIT Internal Medicine; ATTEND Internal Medicine
DX: A41.1 Sepsis due to other specified staphylococcus (principal); J18.9 Pneumonia, unspecified organism; N30.01 Acute cystitis with hematuria; F41.9 Anxiety disorder, unspecified; I10 Essential (primary) hypertension; G43.909 Migraine, unspecified, not intractable, without status migrainosus; B96.1 Klebsiella pneumoniae [K. pneumoniae] as the cause of diseases classified elsewhere; B96.20 Unspecified Escherichia coli [E. coli] as the cause of diseases classified elsewhere; F32.A Depression, unspecified; R73.9 Hyperglycemia, unspecified; Z88.1 Allergy status to other antibiotic agents; Z88.6 Allergy status to analgesic agent; Z91.030 Bee allergy status; Z88.8 Allergy status to other drugs, medicaments and biological substances; Z79.899 Other long term (current) drug therapy; Z79.51 Long term (current) use of inhaled steroids; Z82.49 Family history of ischemic heart disease and other diseases of the circulatory system; Z83.3 Family history of diabetes mellitus

== ENCOUNTER → 2022-10-08 | Outpatient (CLI) | payer OTHER ==
[~2022-10-08] MED LIST changes: +AMLODIPINE BESYL5 MG PO; +LOPERAMIDE HCL2 MG PO; +NASAL RELIEF 1215 ML NAS; +OMNICEF300 MG PO; +VITAMIN B6 PO
== END | disposition home or self-care (01) ==
LOC: LAB 03:00
PROVIDERS: ATTEND Student in an Organized Health Care Education/Training Program
DX: R19.7 Diarrhea, unspecified (principal)

== ENCOUNTER → 2023-04-30 | Outpatient (CLI) | payer OTHER | END | disposition home or self-care (01) | LOC: RESCLI 05:25 | PROVIDERS: ATTEND Internal Medicine | DX: I10 Essential (primary) hypertension (principal); J45.20 Mild intermittent asthma, uncomplicated; E55.9 Vitamin D deficiency, unspecified; Z91.018 Allergy to other foods; Z88.5 Allergy status to narcotic agent; Z88.8 Allergy status to other drugs, medicaments and biological substances; Z91.030 Bee allergy status; Z87.891 Personal history of nicotine dependence; Z82.49 Family history of ischemic heart disease and other diseases of the circulatory system; Z79.899 Other long term (current) drug therapy ==

== ENCOUNTER → 2024-05-14 | Outpatient (CLI) | payer OTHER | END | disposition home or self-care (01) | LOC: RESCLI 04:37 | PROVIDERS: ATTEND Internal Medicine | DX: I47.19 Other supraventricular tachycardia (principal); I10 Essential (primary) hypertension; G43.909 Migraine, unspecified, not intractable, without status migrainosus; F41.9 Anxiety disorder, unspecified; R63.5 Abnormal weight gain; Z79.899 Other long term (current) drug therapy; Z88.8 Allergy status to other drugs, medicaments and biological substances ==

== ENCOUNTER → 2024-07-30 | Outpatient (CLI) | payer OTHER ==
[2024-07-30 10:20] LABS: BASO # 0.1 10*3/uL (0.0-0.1); BASO % 0.7 % (0.0-1.0); EOS # 0.5 10*3/uL (0.0-0.4); EOS % 4.6 % (1.0-4.0); HEMATOCRIT 26.5 % (37.0-47.0); MEAN CELL VOLUME 74.4 fl (81.0-99.0); MEAN CORPUSCULAR HGB 21.1 pg (27.0-31.0); MEAN CORPUSCULAR HGB CONC 28.3 g/dl (33.0-37.0); MEAN PLATELET VOLUME 9.2 fl (9.6-12.3); MONO # 1.1 10*3/uL (0.1-1.0); MONO % 10.7 % (3.0-9.0); NEUT # 7.2 10*3/uL (2.3-7.9); NEUT % 71.3 % (47.0-73.0); PLATELET COUNT AUTOMATED 425 10*3/uL (130-400); RED BLOOD COUNT 3.56 10*6/uL (4.10-5.10); RED CELL DISTRI WIDTH 16.4 % (0-14.5); WHITE BLOOD COUNT 10.1 10*3/uL (4.8-10.8)
[2024-07-30 11:00] LABS: ALKALINE PHOSPHATASE 65 U/L (46-116); BUN 11 mg/dl (9-23); CHLORIDE 107 mmol/L (98-107); CHOLESTEROL 138 mg/dL (<200); FREE T4 1.21 ng/dl (0.89-1.76); LDL CHOLESTEROL 56 mg/dL (9-159); POTASSIUM 3.9 mmol/L (3.4-5.1); SGPT/ALT 11 U/L (5-49); TOTAL PROTEIN 6.7 gm/dL (6.0-8.0); TRIGLYCERIDES 91 mg/dl (<150)
[2024-07-31 11:07] LABS: HEMOGOLBIN A1C 5.4 % (4.8-5.6)
== END | disposition home or self-care (01) ==
LOC: LAB 09:05
PROVIDERS: ATTEND Student in an Organized Health Care Education/Training Program
DX: I10 Essential (primary) hypertension (principal); E66.9 Obesity, unspecified

== ENCOUNTER → 2024-08-06 | Outpatient (CLI) | payer OTHER | END | disposition home or self-care (01) | LOC: RESCLI 03:39 → LAB 03:47 → RESCLI 03:47 | PROVIDERS: ATTEND Internal Medicine | DX: D50.9 Iron deficiency anemia, unspecified (principal) ==